=== PATIENT | female | born 1945 | race Two or more races ===

== ENCOUNTER 2018-03-06 07:14 | Outpatient (CLI) | payer OTHER ==
[~2018-03-06 07:14] MED LIST: HYZAAR 100-121 UDTAB PO; PLAVIX75 MG PO; SINBASTATIN; TESSALON PERLE100 MG PO; TUSSI-PRES LIQ120 ML PO; [UNRECOGNIZED DRUG - OTHER]
== END 2018-03-06 07:27 | disposition home or self-care (01) ==
LOC: MAMO-SONO 07:14
DX: Z12.31 Encounter for screening mammogram for malignant neoplasm of breast (principal); Z87.898 Personal history of other specified conditions; N60.19 Diffuse cystic mastopathy of unspecified breast

== ENCOUNTER 2018-07-15 07:09 | Outpatient (CLI) | payer OTHER | END 2018-07-15 14:47 | disposition home or self-care (01) | LOC: MRI 07:09 | DX: M51.36 Other intervertebral disc degeneration, lumbar region (principal); Z98.1 Arthrodesis status; M50.00 Cervical disc disorder with myelopathy, unspecified cervical region | CPT/HCPCS: 72141; 72148 ==

== ENCOUNTER 2018-11-14 08:30 | Outpatient (CLI) | payer OTHER | END 2018-11-14 08:40 | disposition home or self-care (01) | LOC: RAD 501 08:30 | DX: I11.9 Hypertensive heart disease without heart failure (principal); R06.02 Shortness of breath ==

== ENCOUNTER 2019-06-17 09:52 | Outpatient (CLI) | payer OTHER | END 2019-06-17 09:58 | disposition home or self-care (01) | LOC: MAMO-SONO 09:52 | DX: Z12.31 Encounter for screening mammogram for malignant neoplasm of breast (principal); Z87.898 Personal history of other specified conditions; N60.11 Diffuse cystic mastopathy of right breast; N60.12 Diffuse cystic mastopathy of left breast ==

== ENCOUNTER 2019-06-21 10:04 | Emergency (ER) | payer OTHER ==
[~2019-06-21] VITALS: Ht 149.9 cm; Wt 67.1 kg
[2019-06-21] MEDS ORDERED: SIMVASTATIN5 MG (10:35)
== END 2019-06-21 16:32 | disposition home or self-care (01) ==
LOC: ER 10:04
DX: R42 Dizziness and giddiness (principal)

== ENCOUNTER 2019-06-27 10:30 | Outpatient (CLI) | payer OTHER | END 2019-06-27 15:00 | disposition home or self-care (01) | LOC: LAB 10:30 | DX: R42 Dizziness and giddiness (principal) ==

== ENCOUNTER → 2019-06-27 | Outpatient (CLI) | payer OTHER ==
[~2019-06-27] VITALS: Ht 152.4 cm; Wt 67.1 kg
[~2019-06-27] MED LIST changes: +SIMVASTATIN5 MG
== END | disposition home or self-care (01) ==
LOC: OFIC 805 07:00
DX: H93.11 Tinnitus, right ear (principal); R42 Dizziness and giddiness; I10 Essential (primary) hypertension

== ENCOUNTER → 2019-07-04 | Outpatient (CLI) | payer OTHER | END | disposition home or self-care (01) | LOC: MRI 09:53 | DX: R42 Dizziness and giddiness (principal) | CPT/HCPCS: 70551 ==

== ENCOUNTER → 2020-10-04 | Outpatient (CLI) | payer OTHER | END | disposition home or self-care (01) | LOC: MAMO-SONO 09:43 | PROVIDERS: ATTEND Surgery | DX: N60.02 Solitary cyst of left breast (principal); Z12.31 Encounter for screening mammogram for malignant neoplasm of breast; N60.11 Diffuse cystic mastopathy of right breast; N60.12 Diffuse cystic mastopathy of left breast; N64.59 Other signs and symptoms in breast ==